=== PATIENT | male | born 1975 | race Caucasian/White ===

== ENCOUNTER 2017-12-09 14:21 | Emergency (ER) | payer OTHER ==
[2017-12-09] MEDS ORDERED: MECLIZINE HYDROCHLORIDE 12.5 MG TAB PO ONE (14:32)
[2017-12-09 14:35] VITALS: RESP 16
[2017-12-09] MEDS ORDERED: MECLIZINE HYDROCHLORIDE 12.5 MG TAB ONE (14:39)
[2017-12-09] MEDS ORDERED: SODIUM CHLORIDE 0.9% FLUSH 10 ML SOL IV PRN (14:40)
[2017-12-09 14:42] LABS: CALCIUM 8.4 mg/dl (8.5-10.1); CARBON DIOXIDE 25.1 mEq/L (21-32); CREATININE 1.19 mg/dl (0.80-1.30); POTASSIUM 3.5 mMol/L (3.5-5.1)
[2017-12-09] MEDS ORDERED: SODIUM CHLORIDE 0.9% 1000 ML SOL IV SCH (14:45)
[2017-12-09 14:48] VITALS: TEMP 96.8; O2SAT 95
[2017-12-09 14:49] VITALS: BP 123/89; PULSE 72
[2017-12-09 14:59] LABS: BASOPHILS % (AUTO) 1 % (0-3); EOSINOPHILS % (AUTO) 2 % (0-9); HEMATOCRIT 42 % (39-53); HEMOGLOBIN 15.2 gm/dl (13.5-17.7); LYMPHOCYTES % (AUTO) 37.8 % (10-50); MEAN CORPUSCULAR HEMOGLOBIN 28.9 pg (27.0-32.0); MEAN CORPUSCULAR HGB CONC 36.2 gm/dl (32.0-36.0); MONOCYTES % (AUTO) 10.3 % (0-12); NEUTROPHILS % (AUTO) 48.6 % (37-80)
[2017-12-09 15:02] LABS: MEAN CORPUSCULAR VOLUME 80 fL (80-100)
== END 2017-12-09 15:44 | disposition home or self-care (01) | DRG 641 ==
LOC: ED 14:21
DX: E86.0 Dehydration (principal); H81.10 Benign paroxysmal vertigo, unspecified ear
CPT/HCPCS: 80048; 85025; 93005; 99284; A9270-GY